=== PATIENT | female | born 1990 | race Caucasian/White ===

== ENCOUNTER 2017-12-02 08:43 | Outpatient (CLI) | payer OTHER ==
--- NOTE | 2017-12-09 17:32 | MRI Report ---
Reason: PAIN IN LEFT KNEE Procedure Date: 12/02/2017 Accession Number: [id number] / [id number] Procedure: MRI - Knee LT W/O CPT Code: FULL RESULT: EXAM: LEFT KNEE MRI WITHOUT CONTRAST EXAM DATE: 12/02/2017 09:28 AM. CLINICAL HISTORY: PAIN IN LEFT KNEE. COMPARISON: None. TECHNIQUE: Multiplanar, multisequence T1-weighted and fluid-sensitive sequences of the knee without contrast. Other: None. FINDINGS: Bones: No fractures or subluxations. No marrow edema. No bone lesions. Articular Cartilage: Unremarkable. Medial Meniscus: The medial meniscus is intact. Lateral Meniscus: The lateral meniscus is intact. Cruciate Ligaments: The anterior and posterior cruciate ligaments are intact. Collateral Ligaments: The medial collateral and lateral collateral ligamentous structures are intact. Tendons: The quadriceps, patellar, semimembranosus, and popliteus tendons are unremarkable. Musculature: No edema or fatty atrophy. Other: No effusion. No popliteal cyst. No loose bodies. The medial and lateral retinacula are intact. The subcutaneous tissues and fat pads are unremarkable. IMPRESSION: No MRI abnormalities in the knee. [facility] MUSCULOSKELETAL RADIOLOGY SECTION
== END 2017-12-02 08:44 | disposition home or self-care (01) ==
LOC: EDSEX 08:43 → DI 08:43
PROVIDERS: ATTEND Family Medicine
DX: M25.562 Pain in left knee (principal)